=== PATIENT | male | born 1995 | race Caucasian/White ===

== ENCOUNTER 2020-08-24 15:23 | Emergency (ER) | payer BC ==
[~2020-08-24] VITALS: Ht 177.8 cm; Wt 90.7 kg
[~2020-08-24 15:23] MED LIST: AGM875T; AGM875T PO; CYCL10TA9 PO; NAPR-243 PO
[2020-08-24 15:35] VITALS: BP 160/93
[2020-08-24] MEDS ORDERED: AMOXICILLIN 500 MG (POLYMOX) CAP PO STA (15:40)
[2020-08-24] MEDS ORDERED: TETANUS,DIPTH,PERTUSS P/F (BOOSTRIX) 0.5 ML VIAL IM ONE (15:45)
[2020-08-24] MEDS ORDERED: HYDROcodone/APAP 5 MG/325 MG (LORTAB) TAB PO ONE (15:45)
--- NOTE | 2020-08-24 15:47 | ED EENT ---
History of Present Illness General Stated Complaint: BUSTED LIP/BROKEN TEETH,R KNEE PAIN Source: patient Exam Limitations: no limitations (NANETTE CURRY APRN) History of Present Illness Date Seen by Provider: Aug 24, 2020 Time Seen by Provider: 15:43 Initial Comments To ER with reports of a fall off of a ramp while loading a refrigerator onto a truck. He has an abrasion to the right knee, abrasion across the midline lower chest. He denies shortness of breath cough or abdominal pain. He chipped 2 of his front teeth. He has a laceration to the left upper lip. Unknown last tetanus. Timing/Duration: abrupt Severity: moderate Location: facial Prearrival Treatment: no prearrival treatment Associated Symptoms: denies symptoms (NANETTE CURRY APRN) Allergies and Home Medications Allergies Coded Allergies: NKANo Known Allergies (Verified Allergy, Unknown, 10/24/05) No Known Drug Allergies (Unverified , 09/14/08) Uncoded Allergies: NKDA (Allergy, Mild, 09/09/08) Home Medications Amoxicillin 500 Mg Capsule, 500 MG PO TID Prescribed by: NANETTE CURRY on 08/24/201550 Cyclobenzaprine Hcl 10 Mg Tablet, 1 EACH PO TID PRN FOR MUSCLE SPASMS Prescribed by: JUSTIN CENTENO on 03/03/091931 Hydrocodone/Acetaminophen 1 Each Tablet, 1 TAB PO Q4H PRN for PAIN-MODERATE (5- 7) Prescribed by: NANETTE CURRY on 08/24/20 1552 Naproxen 500 Mg Tablet, 1 EACH PO TID FOR PAIN Prescribed by: JUSTIN CENTENO on 03/03/091931 Patient Home Medication List Home Medication List Reviewed: Yes (NANETTE CURRY APRN) Review of Systems Review of Systems Constitutional: see HPI Eyes: No Symptoms Reported Ears: No Symptoms Reported Nose: no symptoms reported Mouth: see HPI Throat: no symptoms reported Respiratory: no symptoms reported Cardiovascular: no symptoms reported Musculoskeletal: no symptoms reported Skin: no symptoms reported (NANETTE CURRY APRN) Physical Exam Height, Weight, BMI Height: '" Weight: lbs. oz. kg; BMI Method: General Appearance: WD/WN, no apparent distress Eyes: bilateral eye normal inspection, bilateral eye PERRL, bilateral eye EOMI Ears: bilateral ear auricle normal, bilateral ear canal normal, bilateral ear TM normal Nose: normal inspection, active bleeding Mouth/Throat: No mandibular swelling, No maxillary swelling; other (There is a 1.5 cm laceration left upper lip that crosses the vermilion border. Frye appearing laceration to the buccal surface. There is a chip of the very tip of the tooth #10 and 11.) Neck: non-tender, full range of motion Respiratory: chest non-tender, lungs clear, normal breath sounds, no respiratory distress, no accessory muscle use Gastrointestinal: normal bowel sounds, non tender, soft Neurologic/Psychiatric: alert, normal mood/affect, oriented x 3 Skin: normal color, warm/dry (NANETTE CURRY APRN) Procedures/Interventions Wound Location: Face Wound Length (cm): 3 Wound's Depth, Shape: linear, sub Q Irrigated w/ Saline (ccs): 20 Anesthesia: Lidocaine w/ Epi Suture Size: 5-0, 6-0 Number of Sutures: 6 Layer Closure?: 2 Progress The laceration 1.5 cm to the vermilion border left side of the top lip was closed with 4 simple interrupted sutures size 6-0 Prolene. The laceration to the buccal surface was closed with 2 simple interrupted sutures size 5-0 Monocryl. (NANETTE CURRY APRN) Progress/Results/Core Measures Results/Orders Medications Given in ED Current Medications Medications Dose Ordered Sig/Natanael Route Start Time Stop Time Status Last Admin Dose Admin Acetaminophen/ Hydrocodone Bitart 1 ea ONCE ONCE PO 08/24/20 15:45 08/24/20 15:46 DC 08/24/20 16:05 1 EA Diphtheria/ Tetanus/Acell Pertussis 0.5 ml ONCE ONCE IM 08/24/20 15:45 08/24/20 15:46 DC 08/24/20 16:05 0.5 ML (OBIE FLORES MD) Progress Progress Note : Progress Note I was physically present in the emergency room during the care of this patient as the attending physician on duty, but I was not directly involved in his care. (OBIE FLORES MD) Departure Communication (Admissions) There is an abrasion to the right anterior knee. He is ambulatory. Able to lift foot up off the bed. His dentist is Dr. Knight. I called them, they will see him tomorrow morning at 8 AM. (NANETTE CURRY APRN) Impression Primary Impression: Dental fracture Additional Impression: Lip laceration Disposition: 01 HOME, SELF-CARE Condition: Improved Departure-Patient Inst. Decision time for Depature: 15:49 (NANETTE CURRY APRN) Referrals: GABI SANDHU DO (PCP/Family) Primary Care Physician Patient Instructions: Laceration Repair With Stitches (DC) Add. Discharge Instructions: 1. I made an appointment for you with Dr. Mccauley tomorrow at 8 AM. Take the pain medication and the antibiotics as directed. Return to ER for any worsening. Stitches on the lip should be removed in about 5 to 6 days. This can be done here in the emergency room at no charge, just show up in about 5 or 6 days anytime whenever is convenient for you. Scripts Amoxicillin (Amoxicillin) 500 Mg Capsule 500 MG PO TID, #15 CAP Prov: NANETTE CURRY APRN 08/24/20 Hydrocodone/Acetaminophen (Hydrocodone-Acetamin 5-325 mg) 1 Each Tablet 1 TAB PO Q4H PRN for PAIN-MODERATE (5-7), #10 TAB Prov: NANETTE CURRY APRN 08/24/20 NANETTE CURRY APRN Aug 24, 2020 15:46 OBIE FLORES MD Aug 24, 2020 19:25
[2020-08-24] MEDS ORDERED: ACHD5005 PO (15:51)
[2020-08-24] MEDS ORDERED: AMOX500C2 PO (15:51)
[2020-08-24] MEDS ORDERED: LIDOCAINE/EPI 2% 1:100,00 (XYLOCAINE) 20 ML VIAL INJ ONE (16:00)
--- NOTE | 2020-08-24 16:53 | Diagnostic Imaging Report ---
PROCEDURE: CT head, face, and cervical spine without contrast. TECHNIQUE: Multiple contiguous axial images were obtained through the head, neck, and facial bones without the use of intravenous contrast. Sagittal and coronal reformations through the cervical spine and facial bones were also performed. Auto Exposure Controls were utilized during the CT exam to meet ALARA standards for radiation dose reduction. INDICATION: Fall with facial injury. COMPARISON: CT head and facial structures from 09/09/2008. FINDINGS: CT HEAD: There is no hemorrhage, hydrocephalus, edema, mass, mass effect, or evidence for an elevation of the intracranial pressures. The calvarium appears nonacute. The mastoid air cells are clear. No pneumocephalus. No hydrocephalus. The basilar cisterns are patent. CT FACIAL BONES: The nasal bones and bony nasal septum are intact. The bony cuellar of the orbits are intact. The anterior and posterior cuellar of the frontal sinuses are intact. There is opacification of the right maxillary sinus, membrane thickening, and partial opacification of the left maxillary sinus. I cannot, however, identify a fracture to the maxillary sinus cuellar. There is nasal septal spurring and deviation to the left, chronic. The sphenoid sinuses are clear. The central skull base appears intact. There is no post septal or retrobulbar hematoma; however, there is preseptal orbital soft tissue swelling bilaterally. The globe morphology is unremarkable. There is no proptosis. The mandible is intact and the zygomatic arches are intact. The mastoid air cells and middle ear cavities are clear. We note the paranasal sinus disease appears very similar to the comparison CT performed in 2008. The pterygoid plates are intact. CERVICAL SPINE: Body heights are maintained and the alignment is anatomic. No cervical fracture or substantial stenosis. IMPRESSION: CT HEAD: No hemorrhage or acute finding. CT FACE: Septal deviation, nasal septal spurring, right maxillary opacification, and left-sided air-fluid level, similar in appearance to a study of greater than 10 years ago. No identifiable facial fracture identified. CERVICAL SPINE: No cervical fracture or traumatic malalignment. Dictated by: Dictated on workstation # [id number]
== END 2020-08-24 16:57 | disposition home or self-care (01) ==
LOC: EDUNIT# 15:23 → ER 15:26
DX: S02.5XXA Fracture of tooth (traumatic), initial encounter for closed fracture (principal); S01.511A Laceration without foreign body of lip, initial encounter; S80.211A Abrasion, right knee, initial encounter; W17.89XA Other fall from one level to another, initial encounter
CPT/HCPCS: 70450; 70486; 72125; 90715

== ENCOUNTER 2020-08-30 12:22 | Emergency (ER) | payer BC ==
[~2020-08-30] VITALS: Ht 177.8 cm; Wt 90.7 kg
[~2020-08-30 12:22] MED LIST changes: +ACHD5005 PO; +AMOX500C2 PO
[2020-08-30 12:30] VITALS: BP 135/81
== END 2020-08-30 12:56 | disposition home or self-care (01) ==
LOC: EDUNIT# 12:22 → ER 12:23
DX: Z48.02 Encounter for removal of sutures (principal)